=== PATIENT | female | born 1985 | race Caucasian/White ===

== ENCOUNTER 2019-08-14 16:54 | Emergency (ER) | payer MEDICAID ==
[~2019-08-14] VITALS: Ht 160 cm; Wt 77.0 kg
[2019-08-14] MEDS ORDERED: IBUPROFEN 600MG TABLET PO ONE (20:00)
[2019-08-14 20:50] LABS: CLARITY URINE TURBID (CLEAR); COLOR URINE YELLOW (YELLOW); KETONES URINE NEGATIVE (NEGATIVE); LEUKOCYTE ESTERASE URINE NEGATIVE (NEGATIVE); NITRITE URINE NEGATIVE (NEGATIVE); OCCULT BLOOD URINE 1+ (NEGATIVE); PROTEIN URINE TRACE (NEGATIVE); UROBILINOGEN URINE 0.2 E.U./dL (0.2-1.0)
[2019-08-14 22:24] VITALS: BP 133/79
== END 2019-08-14 22:25 | disposition home or self-care (01) ==
LOC: ER 16:54
DX: M54.89 Other dorsalgia (principal); Z88.0 Allergy status to penicillin
CPT/HCPCS: 72070; 81003; 99284

== ENCOUNTER 2022-05-20 19:12 | Emergency (ER) | payer MEDICAID ==
[~2022-05-20] VITALS: Ht 160 cm; Wt 106.0 kg
[2022-05-20 19:27] VITALS: BP 144/86
[2022-05-21] MEDS ORDERED: IBUPROFEN 600MG TABLET PO ONE
== END 2022-05-21 01:00 | disposition home or self-care (01) ==
LOC: ER 19:12
DX: R05.9 Cough, unspecified (principal); R50.9 Fever, unspecified; Z20.822 Contact with and (suspected) exposure to COVID-19; Z88.0 Allergy status to penicillin
CPT/HCPCS: 71045; 87426; 87804; 99284; C9803